=== PATIENT | male | born 1995 | race Caucasian/White ===

== ENCOUNTER 2018-12-05 18:29 | Emergency (ER) | payer OTHER, SELFPAY ==
[2018-12-05 18:29] VITALS: BP 108/62; PULSE 86; RESP 16; TEMP 36.8; O2SAT 98; BMI 21.4
--- NOTE | 2018-12-05 18:36 | CT_ITS ---
HISTORY: HIT FRONT AND BACK OF HEAD ON THURSDAY, HEADACHE TODAY EXAMINATION: CT Head or Brain W/O Contrast TECHNIQUE: Multiple axial images were obtained of the head without intravenous contrast. A radiation dose optimization technique was used for this scan. IV Contrast dosage and agent: None. COMPARISON: None FINDINGS: BRAIN PARENCHYMA: No intra- or extra-axial hemorrhage. No evidence of acute infarct. No intracranial mass or mass effect. There is preservation of the myles/white matter interface. Posterior fossa structures are unremarkable. CSF SPACES: Appropriate for age. No hydrocephalus. Basal cisterns are patent. CALVARIUM, SKULL BASE, PARANASAL SINUSES AND MASTOID AIR CELLS: Clear. No discrete lytic or blastic abnormalities. ORBITS: Both globes, extraocular muscles, optic nerves and retrobulbar fat appear unremarkable. ASPECTS Score for Acute Strokes: 10 CT/Brain/Head without Contrast IMPRESSION: Negative Brain CT without contrast. Individualized dose optimization techniques were used for this CT. at 1920 Reported and signed by: Chuckie Olvera MD Electronically Signed: Chuckie Olvera, at 19:19 EDT Tel , Service support ,
--- NOTE | 2018-12-05 18:38 | ED.VIS.GEN ---
History of Present Illness Chief Complaint: Head Injury Informant: Patient Onset: Days Context: Gradual Onset Timing: Intermittent Current Severity: Moderate Maximum Severity: Moderate Narrative: The patient presents to the emergency department with head injury. He was in his normal state of health. He states he was at work on Thursday. He struck his head on the frontal area against a machine. He states later in the day, he was struck on the back of the head with a piece of molding. He did not lose consciousness. He states he had a mild headache since. However, today, his headache worsened. He was nauseated and was feeling unsteady. He did have one episode of vomiting. He denies any weakness. He denies any fevers or chills. He does not take anticoagulants. Has not taken anything for his pain. Prior similar symptoms: No Recent Illness/Hospitalization: No Past Medical History - Allergies and Home Meds Allergies/Adverse Reactions: Allergies No Known Allergies Allergy (Verified 12/05/18 18:31) Prior records reviewed: Yes Past Medical History: None Surgical History: no surgical history Lives: With Family Alcohol: None Review of Systems General: Denies: Chills, Fever, Sweats Eyes: Denies: Visual changes - right, Visual changes - bilaterally, Diplopia ENT: Denies: Rhinorrhea, Sore throat Cardiovascular: Denies: Chest pain, Palpitations Respiratory: Denies: Dyspnea, Cough, Dyspnea on exertion Gastrointestinal: Reports: Nausea. Denies: Abdominal pain, Vomiting, Diarrhea, Melena, Hematochezia Genitourinary: Denies: Dysuria, Hematuria, Frequency Musculoskeletal: Reports: Arthralgias. Denies: Back pain, Extremity Pain Skin: Denies: Rash, Wounds Neurological: Reports: Headache. Denies: Weakness, Parasthesia, Numbness Psych: Denies: Depression Hematologic: Denies: Easy bruising Physical Exam Vital Signs/Narrative: Vital Signs Temp Pulse Resp BP Pulse Ox 12/05/18 18:29 98.3 F 86 16 108/62 98 Inital Vital Signs reviewed: Yes General: Well nourished, Well developed, No Acute Distress Head: Normocephalic, Atraumatic Eyes: Perrl, EOMI ENT: Moist mucous membranes, No rhinorrhea Neck: Supple, Nontender Cardiovascular: Regular rate, Regular rhythm, No murmurs Respiratory: No distress, CTA bilaterally, Chest nontender Abdomen: Soft, Nontender, Nondistended, Normal bowel sounds Back: Nontender, Normal Inspection Extremities: Nontender, No edema Skin: Normal color, No rash Neurological: Alert, Oriented x3, Cranial nerves II-XII grossly intact, Normal Strength, Normal Sensation Psychological: Normal affect, Normal Mood Diagnostic/Tx/Re-eval Clinical Impression(s) from Imaging Studies Brain CT 12/05/18 18:36 IMPRESSION: Negative Brain CT without contrast. Individualized dose optimization techniques were used for this CT. at 1920 Reported and signed by: Chuckie Olvera MD Electronically Signed: Chuckie Olvera, at 19:19 EDT Tel , Service support , - Medical Decision Making The patient symptoms do seem consistent with concussion. However, I was concerned because he did have vomiting today and worsening headache. His neuro exam is reassuring. Patient underwent noncontrast head CT. This is unremarkable for acute process. At this point, I do feel that he is safe for outpatient therapy. He will be treated symptomatically. He was counseled on concerning symptoms and reasons to return. He will be discharged home. Impression 1. Concussion without loss of consciousness ED Disposition - Plan for ED Patient: Instructions: CONCUSSION, No Wake Up Prescriptions: Meclizine HCl 25 mg PO Q6H PRN PRN #20 tab PRN Reason: Dizziness Prescription Printed Ondansetron [Zofran Odt] 4 mg PO Q8H PRN PRN #10 tab PRN Reason: Nausea Prescription Printed
[2018-12-05] MEDS: Meclizine HCl 25 MG Tablet PO (18:41)
[2018-12-05] MEDS: Ondansetron ODT 4 MG Tablet PO (18:41)
[2018-12-05] MEDS: Acetaminophen 500 MG Tablet 1000 MG PO (18:41)
--- NOTE | 2018-12-05 19:38 | ED.RN ---
PT REPORTS THAT THE INJURY HAPPENED AT WORK. PT REPORTS HE DOES NOT WANT TO FILE INJURY UNDER WORKERS COMP.
[2018-12-05 19:40] VITALS: BP 109/70; PULSE 65; RESP 16; O2SAT 98
== END 2018-12-05 19:42 | disposition home or self-care (01) ==
LOC: ED 18:56
PROVIDERS: Emergency Provider Emergency Medicine
DX: S06.0X0A Concussion without loss of consciousness, initial encounter (principal); W22.8XXA Striking against or struck by other objects, initial encounter; Y93.9 Activity, unspecified; Y92.9 Unspecified place or not applicable
CPT/HCPCS: 70450; 99284

== ENCOUNTER 2018-12-20 13:58 | Emergency (ER) | payer OTHER, SELFPAY ==
[2018-12-20 14:00] VITALS: BP 111/67; PULSE 101; RESP 18; TEMP 37.1; O2SAT 99
--- NOTE | 2018-12-20 15:06 | ED.DCSUM_ITS ---
History of Present Illness Chief Complaint: Dental Informant: Patient Onset: Days Context: Gradual Onset Timing: Continuous Current Severity: Mild Maximum Severity: Mild Narrative: The patient presents to the emergency department with right-sided facial swelling. He states that started about 4 days ago. He states that he noticed some increased swelling and pain. He had a diminished appetite, but states that sometimes when he drinks he will have the pain. He denies any trouble speaking or swallowing. He denies any fevers or chills. He denies any pain in the te eth. He is otherwise been in his normal state of health. Prior similar symptoms: No Recent Illness/Hospitalization: No Past Medical History - Allergies and Home Meds Allergies/Adverse Reactions: Allergies No Known Allergies Allergy (Verified 12/20/18 13:58) Primary Care Physician: Care Physician,No Primary [Primary Care Provider] - Prior records reviewed: Yes Past Medical History: None Surgical History: no surgical history Smoking Status: Never smoker Review of Systems General: Denies: Chills, Fever, Sweats Eyes: Denies: Visual changes - bilaterally, Diplopia ENT: Reports: Right ear pain. Denies: Rhinorrhea, Sore throat Cardiovascular: Denies: Chest pain, Palpitations Respiratory: Denies: Dyspnea, Cough, Dyspnea on exertion Gastrointestinal: Denies: Abdominal pain, Nausea, Vomiting, Diarrhea, Melena, Hematochezia Genitourinary: Denies: Dysuria, Hematuria, Frequency Musculoskeletal: Denies: Back pain, Extremity Pain Skin: Denies: Rash, Wounds Neurological: Denies: Headache, Weakness, Numbness Physical Exam Vital Signs/Narrative: Vital Signs Temp Pulse Resp BP Pulse Ox 12/20/18 14:00 98.7 F 101 H 18 111/67 99 Inital Vital Signs reviewed: Yes General: Well nourished, Well developed Head: Normocephalic, Atraumatic Eyes: Perrl, EOMI ENT: Moist mucous membranes, No rhinorrhea, TM's clear Neck: Supple, Nontender, No JVD, - - Tenderness and fullness of the right parotid gland. No purulence. No streaking. Cardiovascular: Regular rate, Regular rhythm Respiratory: No distress, CTA bilaterally Abdomen: Soft, Nontender, Nondistended Extremities: Nontender Skin: Normal color Neurological: Alert, Oriented x3 Psychological: Normal affect Diagnostic/Tx/Re-eval - Medical Decision Making My suspicion is that patient likely has a parotitis. He does have some reactive nodes within the neck. There is no focal abscess. His oropharynx is widely patent. He has no trouble speaking or swallowing. He will continue anti- inflammatories. The patient was placed on Augmentin. He will be given outpatient ENT follow-up. He is comfortable with this plan of care. Impression 1. Right parotitis ED Disposition - Plan for ED Patient: Instructions: CERVICAL ADENITIS, Antiobiotic Treatment Prescriptions: Amox/Clavulanate Tablet [Augmentin Tablet] 875 mg PO Q12H #20 tab Prescription Printed Referrals: Care Physician,No Primary [Primary Care Provider] -
[2018-12-20 15:43] VITALS: BP 106/65; PULSE 86; RESP 17
== END 2018-12-20 15:46 | disposition home or self-care (01) ==
LOC: ED 15:10
PROVIDERS: Emergency Provider Emergency Medicine
DX: K11.20 Sialoadenitis, unspecified (principal)
CPT/HCPCS: 99282

== ENCOUNTER 2018-12-22 00:05 | Emergency (ER) | payer OTHER, SELFPAY ==
[2018-12-22 00:05] VITALS: BP 115/73; PULSE 80; RESP 16; TEMP 36.8; O2SAT 100; BMI 20.5
--- NOTE | 2018-12-22 00:13 | ED.VISSUMM ---
- ER Visit Summary Date of Service: 12/22/18 Chief Complaint: Swollen lymph node in neck History of Present Illness: The patient is a 23 M who presents with swollen lymph nodes in his neck. His girlfriend noticed them yesterday. He is currently on antibiotics for parotitis that was given him a couple of days ago. He states that it is mildly painful in the lower neck with his lymph nodes are. He has had a temperature up to 100.1 ?F. He is taking ibuprofen at home. He has been taking the Augmentin as prescribed. He denies any easy bruising. Denies any bleeding gums. Physical Examination: Vital signs are reviewed. HEENT exam shows the TMs are clear bilaterally. His throat is not erythematous. Mild tenderness of the right parotid gland. He does have right lower anterior cervical lymphadenopathy which is mildly tender. Heart is regular rate and rhythm without murmurs. Lungs are clear to auscultation bilaterally. Abdomen soft nontender. Neurologic exam normal. Skin exam normal as well. There is no petechia or bruising noted. Test Results: CBC is normal Emergency Department Course and Treatment: I did check a CBC to make sure his blood counts were okay. This is normal. He will continue his antibiotics and NSAIDs. He will continue with ENT follow-up Treatment Plan: [] Disposition: Discharge Impression: Cervical lymphadenopathy This note was generated with [employer] dictation software. It may contain incorrect words, spelling, and punctuation that were not noted in review of the chart prior to signing ED Disposition - Plan for ED Patient: Referrals: Care Physician,No Primary [Primary Care Provider] -
[2018-12-22 00:25] VITALS: BP 115/73; PULSE 80; RESP 16; TEMP 36.8; O2SAT 100
[2018-12-22 00:31] LABS: Absolute Lymphocyte Count 3.04 X10^3/uL (0.83-4.51); Basophil# 0.05 X10^3/uL; Basophil% 0.5 % (0-1); Eosinophils% 5.2 % (0-5); Hemoglobin 13.9 g/dL (13.0-16.5); Lymphocyte # 3.04 X10^3/ul (4.0); Lymphocyte % 31.6 % (19-41); Mean Corp Hgb Conc 34.8 g/dL (32-36); Mean Corpuscular Hgb 28.9 pg (27.0-32.0); Mean Corpuscular Volume 83.2 fL (80-94); Mean Platelet Vol. 8.7 fl (6.2-12.0); Monocyte% 10.4 % (0-10); NRBC Flagged by Analyzer 0 % (0-5); Neutrophil # 5.01 X10^3/uL (2.7-7.7); Platelet Count 196 K/mm3 (150-450); RBC Distribution Width CV 12.8 % (11.6-14.6); RBC Distribution Width SD 38.8 fl (35.1-43.9); Red Blood Count 4.81 M/mm3 (4.6-6.2); White Blood Count 9.6 K/mm3 (4.4-11.0)
--- NOTE | 2018-12-22 00:35 | ED.DEP ---
ED Disposition - Plan for ED Patient: Disposition: Home or Assisted Living Instructions: CERVICAL ADENITIS, Antiobiotic Treatment Referrals: Care Physician,No Primary [Primary Care Provider] -
[2018-12-22 00:40] VITALS: BP 115/73; PULSE 80; RESP 16; O2SAT 100
== END 2018-12-22 00:40 | disposition home or self-care (01) ==
PROVIDERS: Emergency Provider Emergency Medicine
DX: R59.0 Localized enlarged lymph nodes (principal); K11.20 Sialoadenitis, unspecified; Z72.0 Tobacco use
CPT/HCPCS: 36415; 85025; 99282

== ENCOUNTER 2019-04-20 21:30 | Emergency (ER) | payer OTHER, SELFPAY ==
[2019-04-20 21:31] VITALS: BP 117/74; PULSE 72; RESP 15; TEMP 36.4; O2SAT 100; BMI 25.8
--- NOTE | 2019-04-20 21:39 | EKG12_ITS ---
Test Reason : ANXIETY Blood Pressure : / mmHG Vent. Rate : 085 BPM Atrial Rate : 085 BPM P-R Int : 174 ms QRS Dur : 078 ms QT Int : 350 ms P-R-T Axes : 073 071 071 degrees QTc Int : 416 ms Normal sinus rhythm Normal ECG Confirmed by VICTORINO XIAO, JUNE ([id number]), assistant editor EDNA TSANG ([id number]) on 04/27/2019 11:32:49 AM Referred By: NERISSA Confirmed By:MAX GLEASON MD
--- NOTE | 2019-04-20 21:42 | NURSING ---
NO OLD EKGS IN MUSE
--- NOTE | 2019-04-20 21:55 | ED.VIS.GEN ---
History of Present Illness Chief Complaint: Anxiety Informant: Patient Onset: Today Context: Sudden Onset Timing: Continuous Current Severity: Moderate Maximum Severity: Moderate Narrative: The patient presents to the emergency department with left-sided pain and spasm. The patient states that he got into an argument with his girlfriend. He states that he felt very stressed and anxious. He states he began to have pain in his left shoulder. He states it moved down his arm. He now describes paresthesias and pain when he tries to move the arm. He also feels like it is in his leg. He denies headache or visual change. He denies any loss of sensation. He has not had fevers or chills. He states that he does get anxious often. Prior similar symptoms: No Recent Illness/Hospitalization: No Past Medical History - Allergies and Home Meds Allergies/Adverse Reactions: Allergies No Known Allergies Allergy (Verified 12/20/18 13:58) Primary Care Physician: Care Physician,No Primary [Primary Care Provider] - Prior records reviewed: Yes Past Medical History: None Surgical History: no surgical history Smoking Status: Current every day smoker Review of Systems General: Denies: Chills, Fever, Sweats Eyes: Denies: Visual changes - bilaterally, Diplopia ENT: Denies: Rhinorrhea, Sore throat Cardiovascular: Denies: Chest pain, Palpitations Respiratory: Denies: Dyspnea, Cough, Dyspnea on exertion Gastrointestinal: Denies: Abdominal pain, Nausea, Vomiting, Diarrhea, Melena, Hematochezia Genitourinary: Denies: Dysuria, Hematuria, Frequency Musculoskeletal: Denies: Back pain, Extremity Pain Skin: Denies: Rash, Wounds Neurological: Denies: Headache, Weakness, Numbness Physical Exam Vital Signs/Narrative: Vital Signs Temp Pulse Resp BP Pulse Ox 04/20/19 21:31 97.6 F L 72 15 117/74 100 Inital Vital Signs reviewed: Yes General: Well nourished, Well developed, No Acute Distress Head: Normocephalic, Atraumatic Eyes: Perrl, EOMI ENT: Moist mucous membranes, No rhinorrhea Neck: Supple, Nontender Cardiovascular: Regular rate, Regular rhythm, No murmurs Respiratory: No distress, CTA bilaterally, Chest nontender Abdomen: Soft, Nontender, Nondistended, Normal bowel sounds Back: Nontender, Normal Inspection Extremities: Nontender, No edema Skin: Normal color, No rash Neurological: Alert, Oriented x3, Cranial nerves II-XII grossly intact, Normal Strength, Normal Sensation Psychological: Normal affect, Normal Mood Diagnostic/Tx/Re-eval - Rhythm Strip Rhythm Strip: Sinus Rhythm Rate: 80 Ectopy: None - EKG Initial EKG Interpretation: Sinus Rhythm, No Acute Injury Pattern Prior: Unchanged - Medical Decision Making The patient's pain does seem consistent with an acute anxiety reaction. He does not have weakness. He has pain. Starts in the shoulder and goes down his arm. Again, he has no focal weakness. His NIH is 0. The patient was treated with fluids, Toradol, and Ativan. EKG was obtained which showed sinus rhythm without acute ischemia. Labs are unremarkable. On reevaluation, the patient symptoms have abated. At this point, I do feel that he safe for outpatient follow-up. He was counseled on concerning symptoms and reasons to return. He will be discharged home. Impression 1. Acute anxiety reaction ED Disposition - Plan for ED Patient: Instructions: Anxiety Reaction Referrals: Care Physician,No Primary [Primary Care Provider] -
[2019-04-20] MEDS: Ketorolac 30 MG/ML Syringe IV (22:03)
[2019-04-20] MEDS: LORazepam 2 MG/ML Syringe 1 MG IV (22:04)
[2019-04-20] MEDS: 0.9% Normal Saline 1,000 ML 1000 ML IV (22:04)
[2019-04-20 22:13] LABS: Absolute Lymphocyte Count 2.15 X10^3/uL (0.83-4.51); Absolute Neutrophil Count 4.4 X10^3/uL (2.0-7.7); Basophil# 0.05 X10^3/uL; Basophil% 0.6 % (0-1); Eosinophil# 0.57 X10^3/uL; Eosinophils% 7.3 % (0-5); Hematocrit 41.7 % (40-54); Hemoglobin 14.6 g/dL (13.0-16.5); Lymphocyte # 2.15 X10^3/ul (4.0); Lymphocyte % 27.4 % (19-41); Mean Corpuscular Hgb 28.4 pg (27.0-32.0); Mean Corpuscular Volume 81.1 fL (80-94); Mean Platelet Vol. 9.7 fl (6.2-12.0); Monocyte# 0.66 X10^3/uL; Monocyte% 8.4 % (0-10); NRBC Flagged by Analyzer 0 % (0-5); Neutrophil # 4.42 X10^3/uL (2.7-7.7); Neutrophil % 56.2 % (47-70); Platelet Count 194 K/mm3 (150-450); RBC Distribution Width CV 13.6 % (11.6-14.6); RBC Distribution Width SD 39.8 fl (35.1-43.9); Red Blood Count 5.14 M/mm3 (4.6-6.2); White Blood Count 7.9 K/mm3 (4.4-11.0)
[2019-04-20 22:33] LABS: Anion Gap 6 (5-15); BUN 14 mg/dL (7-18); BUN/Creat Ratio 13.6 RATIO (10-20); Calcium,Total 9.3 mg/dL (8.5-10.1); Chloride 108 mmol/L (98-107); Creatinine, Serum 1.03 mg/dL (0.70-1.30); EST Glomerular Filtration Rate 96 mL/min (>60); Est Glom Filt Rate - Afr Amer 116 mL/min (>60); Estimated Creatinine Clearance 109.76 ml/min; Glucose 103 mg/dL (74-106); Potassium 3.6 mmol/L (3.5-5.1); Sodium Level 142 mmol/L (136-145)
[2019-04-20 22:46] VITALS: BP 106/71; PULSE 69; RESP 16; O2SAT 99
== END 2019-04-20 22:48 | disposition home or self-care (01) ==
LOC: ED 22:24
PROVIDERS: Emergency Provider Emergency Medicine
DX: F41.1 Generalized anxiety disorder (principal); M25.512 Pain in left shoulder; R20.2 Paresthesia of skin; F17.200 Nicotine dependence, unspecified, uncomplicated
CPT/HCPCS: 80048; 85025; 93005; 96361; 96374; 96375; 99284; J7030

== ENCOUNTER 2020-04-29 03:44 | Emergency (ER) | payer OTHER, SELFPAY ==
[2020-04-29 03:46] VITALS: BP 134/84; PULSE 82; RESP 16; TEMP 36.7; O2SAT 100; BMI 25.8
--- NOTE | 2020-04-29 03:53 | ED.VISSUMM ---
- ER Visit Summary Date of Service: 04/29/20 Chief Complaint: Dental pain History of Present Illness: The patient is a 24 M with no primary care physician or dentist. He reports he has pain in his left mandibular third molar that began 4 days ago. Is a throbbing pain instead of 10 worsening to 10 currently. Is worsened by nothing including eating. Is not sensitive to hot or cold temperatures. He states he is taken naproxen without relief. Patient denies any fever or jaw swelling. Physical Examination: Vitals: Stable. Afebrile. Mouth: No trismus. No edema of the floor of the mouth. Pain with percussion of left mandibular third molar. There are obvious caries here. General: A&O x 3. NAD. Cardiovascular exam: Regular rate and rhythm, no murmur, rub or gallop. Respiratory exam: Clear to auscultation bilaterally. No wheezes or stridor. Abdominal exam: Soft, nontender, nondistended, normal bowel sounds. No peritoneal signs. Extremity: No clubbing, cyanosis, or edema. Emergency Department Course and Treatment: An [facility] report was obtained which was negative. The patient was treated penicillin and [place]. Treatment Plan: Patient be discharged prescription for 10 [place], naproxen, and penicillin. Instructed to follow-up with a dentist as soon as possible. Return to the emergency department for any worsening symptoms. Disposition: To home in improved and stable condition. Impression: 1. Dental pain. This note was generated with [employer] dictation software. It may contain incorrect words, spelling, and punctuation that were not noted in review of the chart prior to signing ED Disposition - Plan for ED Patient: Instructions: ED Dental Pain Prescriptions: Naproxen [Naprosyn] 500 mg PO BID #14 tablet Hydrocodone Bitart/Apap 5-325 [[place] 5MG-325MG] 1 tablet PO Q4H PRN PRN 2 Days #10 tablet PRN Reason: Pain Penicillin V Potassium 500 mg PO 4X/DAY #40 tablet Referrals: Dentist,Your [STAFF PHYSICIAN] - As soon as possible
[2020-04-29] MEDS: Penicillin Vk 250 MG Tablet 500 MG PO (04:01)
[2020-04-29 04:02] VITALS: RESP 16
[2020-04-29] MEDS: HYDROcodone Bitartrate/Apap 5/325 Tablet PO (04:02)
== END 2020-04-29 04:10 | disposition home or self-care (01) ==
PROVIDERS: Emergency Provider Emergency Medicine
DX: K08.89 Other specified disorders of teeth and supporting structures (principal); R51.9 Headache, unspecified; Z72.0 Tobacco use
CPT/HCPCS: 99283